=== PATIENT | female | born 1995 | race Caucasian/White ===

== ENCOUNTER → 2020-10-23 | Outpatient (CLI) | payer OTHER | END | disposition home or self-care (01) | LOC: US 07:30 | PROVIDERS: ATTEND Nurse Practitioner Women's Health | DX: N93.9 Abnormal uterine and vaginal bleeding, unspecified (principal); Z97.5 Presence of (intrauterine) contraceptive device ==

== ENCOUNTER → 2021-01-29 | Outpatient (CLI) | payer OTHER ==
[2021-01-31 02:06] LABS: FACTOR VIII ACTIVITY 88 % (56-140); VON WILLEBRAND FACTOR AG 88 % (50-200)
[2021-01-31 03:06] LABS: VON WILLEBRAND ACTIVITY 77 % (50-200)
== END | disposition home or self-care (01) ==
LOC: LAB 09:30
PROVIDERS: ATTEND Family Medicine
DX: N92.0 Excessive and frequent menstruation with regular cycle (principal)

== ENCOUNTER → 2021-06-09 | Outpatient (CLI) | payer OTHER | END | disposition home or self-care (01) | LOC: COVID19 18:04 | PROVIDERS: ATTEND Internal Medicine | DX: Z20.822 Contact with and (suspected) exposure to COVID-19 (principal) ==

== ENCOUNTER → 2021-10-14 | Outpatient (CLI) | payer OTHER | END | disposition home or self-care (01) | LOC: RAD 16:19 | PROVIDERS: ATTEND Family Medicine | DX: R06.02 Shortness of breath (principal) ==

== ENCOUNTER → 2022-02-04 | Outpatient (CLI) | payer OTHER | END | disposition home or self-care (01) | LOC: US 01-14 08:30 | PROVIDERS: ATTEND Nurse Practitioner Women's Health | DX: D24.1 Benign neoplasm of right breast (principal); N63.11 Unspecified lump in the right breast, upper outer quadrant; N64.59 Other signs and symptoms in breast ==